=== PATIENT | female | born 2000 | race Caucasian/White ===

== ENCOUNTER 2020-01-22 00:10 | Emergency (ER) | payer MEDICAID ==
[2020-01-22] MEDS ORDERED: Sodium Chloride 0.9% 50 ML SDV FLUSH ONE (00:58)
[2020-01-22] MEDS ORDERED: Diatrizoate Meglumine/Diatrizoate Sodium 37% 30 ML Bottle PO SCH (01:00)
[2020-01-22] MEDS ORDERED: Iopamidol 612 MG/ML 100 ML Bottle IV SCH (01:00)
[2020-01-22 02:51] VITALS: BP 136/92; PULSE 89
[2020-01-22] MEDS: Sodium Chloride 0.9% 1,000 ML IV ONE (03:00)
[2020-01-22] MEDS: Ondansetron 4 MG/2 ML SDV IVPUSH ONE (03:00)
--- NOTE | 2020-01-22 04:42 | ER ---
REASON FOR EMERGENCY ROOM VISIT: Lower abdominal cramping with nausea and vomiting and known COVID-19. HISTORY: This previously healthy 19-year-old woman was diagnosed yesterday (01/21/2020) with COVID-19. Prior to that, she had had 2 days history of generalized malaise and myalgias along with fatigue, but she had no respiratory symptoms including sore throat, chest tightness, chest pain, or coughing. She has not had any fever or chills. Because she had been exposed to someone who was later found to be positive for COVID-19 back on 01/16/2020 and because of the symptoms, she came in yesterday morning and Dr. Valdez ordered a COVID-19 test which came back positive. She was contacted early last evening with the results of this test and at that time she was experiencing the above-mentioned symptoms, but otherwise was feeling okay. She was instructed regarding quarantine as well as to all persons with whom she has had contact since 01/16/2020 to be quarantined as well and that they ought to be tested for COVID-19 as well as part of a contact tracing protocol. She denied contact with any other individuals except her father since 01/16/2020, which simplify the issue. Late last evening, she developed some lower abdominal cramping and had an emesis x1, which contain which she thought was a small quarter-size clot of blood. She has had no further episodes of vomiting and she has not had any diarrhea. Again, she had not experienced any fever or chills, and at the present time she has only mild nausea. PAST MEDICAL HISTORY: Reviewed and is unremarkable. It includes: 1. History of urticaria. 2. Viral gastroenteritis. MEDICATIONS: At home include fluoxetine and albuterol inhaler p.r.n. ALLERGIES: NONE TO MEDICATIONS. REVIEW OF SYSTEMS: Pertinent positives and negatives as listed in the HPI. PHYSICAL EXAMINATION: GENERAL: Reveals a pleasant young woman who appears slightly anxious but otherwise in no acute distress. VITAL SIGNS: She is afebrile. Her heart rate is 103, blood pressure is 155/102, respiratory rate is 16, O2 saturation 98% on room air. HEENT: Oropharynx is unremarkable. No scleral icterus is noted. No conjunctivitis is noted. NECK: Supple. No adenopathy. CHEST: Clear to auscultation with good air exchange bilaterally and no wheezes, rhonchi, or rales. CARDIAC: Regular rate without murmur. ABDOMEN: Obese but nondistended, soft, and nontender to deep palpation. There is no rebound or guarding present. There is no hepatosplenomegaly. No palpable masses were noted. EXTREMITIES: Normal pulses. No edema. No abnormal discolorations or nodules. SKIN: No rashes. NEUROLOGIC: Grossly intact. LABORATORY DATA: The following labs were obtained: CBC which was normal. She has a white blood count of 6700. Her hemoglobin is 14.4. A CMP, a CRP, an amylase, a lipase, and a lactic acid were all within normal limits. IMAGING: We went ahead and obtained a CT scan of her chest and abdomen with contrast and no significant findings were found. There was certainly no acute findings. IMPRESSION: COVID-19 with gastrointestinal symptoms as described above. PLAN: Because she vomited and she still feels some nausea, we went ahead and gave her 1 L of normal saline and 4 mg of Zofran IV. She was given a prescription for Zofran 4 mg ODT, dispense #5 one q.6 hours p.r.n. nausea. She was instructed to stay on clear liquids for the next day or 2 and to advance her diet as tolerated if she feels hungry. I advised her to stay away from dairy products and told her that it would not be surprising for her to develop diarrhea just like any other viral gastroenteritis if indeed that is what her symptoms are manifesting. If she has any other questions or concerns, she should feel free to call us. I strongly urged her and her father regarding the quarantining and they understand and agree with this. All questions were answered. TIFFANIE /[id number]
--- NOTE | 2020-01-22 20:46 | CT ---
CLINICAL DATA: Vomiting blood. ENHANCED CHEST CT, 22 JANUARY 2020: Multislice acquisition through the chest with IV contrast was performed. No priors. The lungs are clear. No areas of consolidation. No pneumothorax. No pleural effusions. The heart size is normal. No pericardial effusion. No evidence of aortic aneurysm or dissection. No hilar or mediastinal adenopathy. No osseous abnormalities. IMPRESSION: No acute abnormalities. ENHANCED ABDOMEN AND PELVIC CT, 22 JANUARY 2020: Multislice acquisition through the abdomen and pelvis with IV and oral contrast was performed. No priors. The liver is normal size with homogeneous attenuation. No focal hepatic lesions. The gallbladder appears normal. No pericholecystic fluid. No biliary duct dilatation. The spleen appears normal. The pancreas appears normal. The right and left adrenals appear normal. The right and left kidneys appear normal and enhance symmetrically. No hydronephrosis or hydroureter. The bladder is partially fluid-filled. It appears normal. There is fluid within the endometrial cavity of the uterus. The uterus otherwise appears normal. No evidence of appendicitis. No free air. No free fluid. No dilated loops of bowel. No adenopathy. No aortic aneurysm or dissection. There are low density lesions in both ovaries, consistent with bilateral ovarian cysts. No osseous abnormalities. Job: [id number] CasenetD
== END 2020-01-22 04:00 | disposition home or self-care (01) ==
LOC: LB.ED 00:10
DX: U07.1 COVID-19 (principal); R10.30 Lower abdominal pain, unspecified; R11.2 Nausea with vomiting, unspecified; E66.9 Obesity, unspecified; Z68.39 Body mass index [BMI] 39.0-39.9, adult
CPT/HCPCS: 36415; 71260; 74177; 80053; 82150; 83605; 83690; 85025; 86140; 96374; 99284-25; J2405; J7030; Q9963

== ENCOUNTER 2023-05-18 08:32 | Emergency (ER) | payer OTHER ==
[2023-05-18 08:51] VITALS: BP 129/84; PULSE 86
[2023-05-18] MEDS: Silver Sulfadiazine 1% Crm 50 GM Tube TOP ONE (09:02)
[2023-05-19] MEDS: Silver Sulfadiazine 1% Crm 20 GM Tube TOP ONE (10:33)
== END 2023-05-18 09:18 | disposition home or self-care (01) ==
LOC: LB.ED 08:32
DX: T23.221A Burn of second degree of single right finger (nail) except thumb, initial encounter (principal); T31.0 Burns involving less than 10% of body surface; F17.210 Nicotine dependence, cigarettes, uncomplicated; X10.2XXA Contact with fats and cooking oils, initial encounter; Y93.G3 Activity, cooking and baking
CPT/HCPCS: 16020; 99282; 99283-25; A9270-GY

== ENCOUNTER 2023-10-28 10:57 | Emergency (ER) | payer SELFPAY ==
[2023-10-28 11:06] VITALS: BP 154/92; PULSE 85
== END 2023-10-28 11:26 | disposition home or self-care (01) ==
LOC: LB.ED 10:57
DX: S80.01XA Contusion of right knee, initial encounter (principal); W19.XXXA Unspecified fall, initial encounter; Y93.64 Activity, baseball
CPT/HCPCS: 73562-RT; 99283

== ENCOUNTER 2024-05-01 08:17 | Emergency (ER) | payer BC ==
[2024-05-01] MEDS ORDERED: Sodium Chloride 0.9% 10 ML Syringe FLUSH PRN (09:04)
[2024-05-01] MEDS: Sodium Chloride 0.9% 1,000 ML IV SCH (09:12)
[2024-05-01] MEDS: Ondansetron 4 MG/2 ML SDV IVPUSH ONE (09:17)
[2024-05-01] MEDS: Pantoprazole 40 MG Vial IVPUSH ONE (09:17)
[2024-05-01 09:25] LABS: ANION GAP 14.9 mmol/L (5.0-15.0); BUN/CREATININE RATIO 12.2 (6-25); CALCIUM 8.5 mg/dL (8.5-10.1); CARBON DIOXIDE,CO2 24.4 mmol/L (21.0-32.0); CREATININE 0.9 mg/dL (0.55-1.02); EST CRCL DRUG DOSING (CG) 107.73 mL/min; POTASSIUM,K 3.3 mmol/L (3.5-5.1)
[2024-05-01 09:27] VITALS: BP 105/74; PULSE 87
[2024-05-01] MEDS ORDERED: Ondansetron 4 MG Tab.DIS ONE (09:30)
== END 2024-05-01 10:32 | disposition home or self-care (01) ==
LOC: LB.ED 08:17
DX: B34.9 Viral infection, unspecified (principal); E86.0 Dehydration; E87.6 Hypokalemia; J45.909 Unspecified asthma, uncomplicated; F17.200 Nicotine dependence, unspecified, uncomplicated; Z79.51 Long term (current) use of inhaled steroids; Z79.899 Other long term (current) drug therapy
CPT/HCPCS: 36415; 80048; 96361; 96374; 96375; 99284-25; J2405; J2470; J7030; Q0162

== ENCOUNTER 2024-09-06 23:47 | Emergency (ER) | payer BC ==
[2024-09-06] MEDS ORDERED: predniSONE 10 MG Tab ONE (23:55)
[2024-09-07] MEDS: methylPREDNISolone Sodium Succinate 125 MG/2 ML SDV IM ONE (00:16)
[2024-09-07 00:52] VITALS: BP 132/91; PULSE 96
== END 2024-09-07 00:27 | disposition home or self-care (01) ==
LOC: LB.ED 23:47
DX: L23.7 Allergic contact dermatitis due to plants, except food (principal); Z79.51 Long term (current) use of inhaled steroids
CPT/HCPCS: 96372; 99282; 99283; J2919; J7512